=== PATIENT | female | born 1935 ===

== ENCOUNTER 2016-10-09 06:47 | Day surgery (SDC) | payer MEDICARE ==
[2016-10-03 11:22] VITALS: BMI 25.6
[2016-10-09 07:19] LABS: BASO # 0.01 K/mm3 (0.0-2.0); BASO % 0.2 % (0.0-3.0); EOS # 0.1 (0.0-0.7); EOS % 2.7 % (1.5-5.0); GRAN # 2.96 (1.4-6.5); GRAN % 73.4 % (50.0-68.0); HEMOGLOBIN 10.8 gm/dL (12.0-16.0); LYMPH # 0.7 (1.2-3.4); LYMPH % 17.3 % (22.0-35.0); MEAN CELL VOLUME 89.4 fL (80.0-105.0); MEAN CORPUSCULAR HEMOGLOBIN 28.5 pg (25.0-35.0); MEAN CORPUSCULAR HGB CONC 31.9 g/dl (31.0-37.0); MEAN PLATELET VOLUME 10.7 fl (7.0-11.0); MONO # 0.3 (0.1-0.6); MONO % 6.4 % (1.0-6.0); PLATELET COUNT 156 10^3/uL (120.0-450.0); RBC 3.79 10^6/uL (3.5-6.1)
[2016-10-09] MEDS ORDERED: Midazolam 2 MG/2 ML VIAL ONE ×3 (07:25→08:54)
[2016-10-09 07:32] LABS: INR 0.96 (0.93-1.08); PARTIAL THROMBOPLASTIN TIME 26.2 Seconds (23.7-30.8); PROTHROMBIN TIME 10.4 Seconds (9.9-11.8)
[2016-10-09 07:46] LABS: BLOOD UREA NITROGEN 16 mg/dL (7-21); CALCIUM 9.3 mg/dL (8.4-10.5); GFR AFRICAN-AMERICAN > 60; GFR NON-AFRICAN AMERICAN > 60
[2016-10-09] MEDS ORDERED: Lidocaine 2% Inj (20ml) ONE (09:05)
[2016-10-09] MEDS ORDERED: Iodixanol 320 MG/ML 200 ML BOTTLE IV ONE (09:05)
[2016-10-09] MEDS ORDERED: Iodixanol 320 MG/ML 100 ML BOTTLE IV ONE (09:05)
[2016-10-09] MEDS ORDERED: Iohexol 350mgl/ml 50 ML ONE (09:05)
[2016-10-09] MEDS ORDERED: Sodium Chloride 0.9% 1,000 ML IV SCH (11:30)
--- NOTE | 2016-10-09 12:23 | CARD ---
APPROVED REPORT EKG Measurement Heart [id number] <Conclusion> Normal sinus rhythm Normal ECG
--- NOTE | 2016-10-09 13:01 | CARD ---
APPROVED REPORT EKG Measurement Heart [id number] <Conclusion> Sinus bradycardia Otherwise normal ECG
--- NOTE | 2016-10-09 22:26 | CARDCATH ---
PROCEDURE DATE: 10/09/2016 HISTORY: The patient is an 81-year-old woman with previous PTCA and stent in the past, who presents with angina. The stress test was abnormal with a new defect in the apex of the heart. Because of this, the cardiac catheterization was recommended. PROCEDURE: Left heart catheterization requiring angiography and left ventriculogram. This is followed by attempt at PTCA of critical lesions in the RCA. The right femoral artery was cannulated with a 6-[place] sheath. There were no complications. The findings on catheterization revealed a left ventricle that contracted normally. Estimated ejection fraction was 60%. The coronary anatomy revealed a right dominant circulation. The RCA revealed a patent stent in the proximal portion, which extended to the ostium of the RCA. There was a 40-50% in-stent restenosis in the ostium of the stent. In the mid portion of the RCA, there was a long 80% stenoses noted. The left main artery was found to be unremarkable. The LAD revealed diffuse atherosclerosis with a patent stent in the proximal extending into the mid LAD. The circumflex artery and obtuse marginal branch revealed intimal irregularities without significant stenoses. The patient was started on IV Angiomax. Multiple guiders were use to try to engage the RCA. Because of the stent that extended outside of the ostium in the RCA, we could not get the guiding catheter to be coaxial in the lumen of the stent. Attempt at placing an 0.014 wire into the RCA was successful; however, a balloon would not cross suggesting that the wire might have gone to the side of the ostial stent instead of in the lumen. After multiple attempts, the test was aborted. Repeat cardiac angiography revealed no change. Angio-Seal was used to close the femoral artery side and the patient tolerated the procedure well. In summary, the procedure was unsuccessful for PTCA of a new 80% long stenosis in the RCA. This was due to the protruding stents at the ostium of the RCA. LV function is normal. The proximal stent of the RCA is patent. The proximal mid stent in the LAD is patent. Given these findings, we will treat the patient's new critical RCA lesions with medical therapy. Etienne Mcneal MD [facility] # [id number]
[2016-10-10 05:49] VITALS: O2SAT 98
[2016-10-10 07:33] LABS: BLOOD UREA NITROGEN 12 mg/dL (7-21); GFR AFRICAN-AMERICAN > 60; GFR NON-AFRICAN AMERICAN > 60
[2016-10-10 07:41] LABS: CALCIUM 8.5 mg/dL (8.4-10.5)
[2016-10-10 12:07] VITALS: BP 100/50; PULSE 50; RESP 16; TEMP 98.3
--- NOTE | 2016-10-10 15:17 | PN ---
CARDIOLOGY FOLLOWUP DATE: 10/10/2016 SUBJECTIVE: The patient is chest pain free. PHYSICAL EXAMINATION: VITAL SIGNS: Blood pressure is 118/60 and the heart rate is in the 60s. NECK: Negative JVD. HEART: Reveals S1 and S2. LUNGS: Without rales. EXTREMITIES: Without edema. The right groin side is stable. LABORATORY DATA: Reviewed and are unchanged. IMPRESSION: 1. Status post catheterization and percutaneous transluminal coronary angioplasty. 2. Patent stent in the circumflex artery with an right coronary artery lesion that cannot be opened due to anatomic consideration. 3. Continue medical therapy. 4. Hypertension. 5. Hypercholesterolemia. PLAN: Given these findings, the patient is stable for discharge. We will continue medical therapy and follow up as discussed with the patient. Follow up instructions have been given to her. The patient can be discharged today. Etienne Mcneal MD
== END 2016-10-10 13:27 | disposition home or self-care (01) ==
LOC: CATH 06:47 → 2RSO 09:57 → CATH 10-10 13:27
PROVIDERS: ATTEND Internal Medicine Cardiovascular Disease
DX: I25.118 Atherosclerotic heart disease of native coronary artery with other forms of angina pectoris (principal); T82.858A Stenosis of other vascular prosthetic devices, implants and grafts, initial encounter; I10 Essential (primary) hypertension; E78.00 Pure hypercholesterolemia, unspecified; Y83.8 Other surgical procedures as the cause of abnormal reaction of the patient, or of later complication, without mention of misadventure at the time of the procedure
CPT/HCPCS: 36415 ×2; 80048 ×2; 85025; 85610; 85730; 86850; 86870; 86900; 93005; 93458; 99152; 99153; C1725; C1760; C1769 ×2; C1887 ×6; C2629; C9600; J0583; J1644; J2250; J3010; J7030; J7040; Q9967 ×2